=== PATIENT | male | born 1970 | race Caucasian/White ===

== ENCOUNTER → 2017-02-27 | Outpatient (CLI) | payer BC ==
[~2017-02-27] MED LIST: CITA20TA9 PO; VNTHFA/IN INH
--- NOTE | 2017-02-27 14:05 | DIAGNOSTIC IMAGING REPORT ---
CT SCAN OF THE ABDOMEN AND PELVIS WITHOUT IV CONTRAST CLINICAL HISTORY: Nephrolithiasis. Hematuria. COMPARISON STUDY: Abdominal CT dated 02/02/2016 and 04/09/2010. TECHNIQUE: CT scan of the abdomen and pelvis is performed from the lung bases to the proximal femora. Images are reviewed in the axial, sagittal, and coronal planes. IV contrast was not administered for this examination. A dose lowering technique was utilized adhering to the principles of ALARA. CT DOSE: 971.66 mGycm FINDINGS: Lung bases: The heart is normal in size and without pericardial effusion. The lung bases are clear. There is a tiny hiatal hernia. Liver: The unenhanced liver is mildly enlarged measuring 18.8 cm in length. The liver demonstrates diminished attenuation suggesting steatosis. Fatty sparing is seen adjacent to gallbladder fossa. There is no intrahepatic biliary ductal dilatation. There is a 2.5 cm low-attenuation focus seen in hepatic segment IV on image #72. Gallbladder: Unremarkable. Spleen: Normal in size and attenuation. Pancreas: The unenhanced pancreas is grossly unremarkable. Adrenal glands: Unremarkable. Kidneys: The unenhanced kidneys are normal in size and without hydronephrosis. There is a 5 mm nonobstructing calculus in the lower pole the right kidney. No left renal calculi are seen. There is no evidence of contour deforming renal mass lesion. Abdominal vasculature: The abdominal aorta is normal in course and caliber noting scattered foci of atherosclerotic calcification. Bowel: The small bowel and colon are normal in course and caliber. The appendix is well-visualized and normal. Peritoneum: There is no intraperitoneal free air or abdominal ascites. Lymphadenopathy: None. Pelvic viscera: The bladder, prostate, and seminal vesicles are normal as visualized. There are small bilateral fat-containing inguinal hernias. Skeletal structures: A large hemangioma is noted in the body of L3. No lytic or blastic lesions are seen. IMPRESSION: 1. There are no acute infectious or inflammatory findings in the abdomen or pelvis. 2. There is a 5 mm nonobstructing calculus in the lower pole of the right kidney. No left renal calculi are identified and there is no hydronephrosis. 3. The liver is enlarged and there is evidence of mild steatosis. 4. There is a 2.5 cm low-attenuation focus seen in hepatic segment IV. This was not clearly identified on prior examinations and is pathologically indeterminant, possibly representing a focus of geographic fatty infiltration. Correlation with a nonemergent contrast-enhanced MRI of the liver is recommended for further assessment and to a exclude underlying mass lesion. 5. Additional findings as above. Electronically signed by: Francisco Locke M.D. 02/27/2017 2:04 PM Dictated Date/Time: 02/27/2017 1:38 PM
== END | disposition home or self-care (01) ==
LOC: C.CTS 12:24
PROVIDERS: ATTEND Nurse Practitioner Family
DX: R30.0 Dysuria (principal); R31.9 Hematuria, unspecified; Z87.442 Personal history of urinary calculi

== ENCOUNTER → 2017-03-07 | Outpatient (CLI) | payer BC ==
[~2017-03-07] MED LIST changes: +GADOXETATE DISODIUM (NON-WT BASED PROCEDURE) IV PRN
--- NOTE | 2017-03-07 23:23 | DIAGNOSTIC IMAGING REPORT ---
MRI LIVER COMBO CLINICAL HISTORY: Liver lesion. COMPARISON STUDY: CT of the abdomen and pelvis February 27, 2017. TECHNIQUE: Utilizing a 1.5 Joann magnet and dedicated coil, multiplanar, multiecho imaging of the abdomen was performed pre and postcontrast administration. Post contrast imaging was performed utilizing dynamic enhancement. Injection of 10 cc of Eovist IV was uneventful. FINDINGS: The liver morphology is normal. Note is made of a 1.1 cm T2 hyperintense lesion within segment 7 of the liver and an additional 1 cm segment 5 T2 hyperintense lesion. These demonstrate nodular peripheral enhancement on postcontrast images and are consistent with hemangiomas. These are benign and were present on earlier CT of April 09, 2010. Fatty infiltration of the liver is noted on the out of phase sequence. There is more pronounced loss of signal within the medial segment of the left hepatic lobe which represents fatty infiltration and corresponds to the finding shown on prior CT of February 27, 2017. There are no suspicious hepatic lesions. There is no biliary or pancreatic ductal dilatation. The spleen, adrenal glands, kidneys and pancreas are unremarkable. There is no abdominal adenopathy or ascites. IMPRESSION: 1. No suspicious hepatic lesions. The 2.[address] of February 27, 2017 represents fatty infiltration. 2. Two small T2 hyperintense hepatic lesions consistent with hemangiomas. Electronically signed by: Rodney Mitchell M.D. 03/07/2017 11:22 PM Dictated Date/Time: 03/07/2017 8:52 PM
== END | disposition home or self-care (01) ==
LOC: C.MRI 19:00
PROVIDERS: ATTEND Nurse Practitioner Family
DX: K76.9 Liver disease, unspecified (principal)

== ENCOUNTER → 2017-03-27 | Outpatient (CLI) | payer OTHER ==
[~2017-03-27] MED LIST changes: +CHOL1TAB42 PO; +CIPR-255 PO; -GADOXETATE DISODIUM (NON-WT BASED PROCEDURE) IV PRN; +TRIA1SPR4 NAE
--- NOTE | 2017-03-27 11:51 | DIAGNOSTIC IMAGING REPORT ---
KUB CLINICAL HISTORY: Nephrolithiasis. FINDINGS: 2 AP supine abdominal radiographs are correlated with abdominal CT dated 02/27/2017. There is a nonobstructed abdominal bowel gas pattern noting moderate colonic fecal retention. There is no radiographic evidence of nephrolithiasis. Tiny phleboliths are observed in the pelvis. The bony structures appear intact. IMPRESSION: There is no radiographic evidence of nephrolithiasis. Electronically signed by: Francisco Locke M.D. 03/27/2017 11:49 AM Dictated Date/Time: 03/27/2017 11:48 AM
== END | disposition home or self-care (01) ==
LOC: C.RAD 10:19
PROVIDERS: ATTEND Urology
DX: N20.0 Calculus of kidney (principal)

== ENCOUNTER → 2017-05-05 | Outpatient (CLI) | payer OTHER ==
--- NOTE | 2017-05-05 14:56 | DIAGNOSTIC IMAGING REPORT ---
SOFT TISS HEAD/NECK-THYROID CLINICAL HISTORY: 46 years-old Male with SIALADENITIS. COMPARISON: Brain MRI 07/26/2011 TECHNIQUE: Multiple real time sonographic images of the bilateral parotid glands were obtained accessing ramirez scale appearance and color doppler flow. FINDINGS: The right parotid gland measures 6.7 x 4.5 x 2.1 cm. The left parotid gland measures 7.3 x 2.0 x 2.0 cm. There are bilateral ovoid circumscribed hypoechoic structures of the bilateral parotid glands suggesting lymph nodes, largest of which is within the right superficial parotid measuring 0.9 x 1.1 x 0.6 cm. The remainder of the structures are subcentimeter in size and likely reflect normal lymph nodes. IMPRESSION: 1. No suspicious mass lesions of the parotid identified. 2. Bilateral parotid lymph nodes are likely physiologic. Mildly enlarged lymph node of the superficial right parotid gland measures 1.1 cm in short axis. This could be further evaluated with a follow-up ultrasound to exclude progressive abnormality. The above report was generated using voice recognition software. It may contain grammatical, syntax or spelling errors. Electronically signed by: Alon Black M.D. 05/05/2017 2:55 PM Dictated Date/Time: 05/05/2017 2:49 PM
== END | disposition home or self-care (01) ==
LOC: C.ULTR 13:47
PROVIDERS: ATTEND Nurse Practitioner Family
DX: K11.20 Sialoadenitis, unspecified (principal); R22.0 Localized swelling, mass and lump, head

== ENCOUNTER 2017-05-10 13:57 | Emergency (ER) | payer OTHER ==
[~2017-05-10 13:57] MED LIST changes: -CIPR-255 PO
[2017-05-10 14:08] VITALS: TEMP 37
[2017-05-10] MEDS ORDERED: ACETAMINOPHEN 500 MG TAB PO STA (14:48)
[2017-05-10] MEDS ORDERED: KETOROLAC TROMETHAMINE 30 MG/ML VIAL IV STA (14:48)
[2017-05-10] MEDS ORDERED: OPTIRAY 320 IV PRN (15:00)
--- NOTE | 2017-05-10 15:17 | DIAGNOSTIC IMAGING REPORT ---
CHEST ONE VIEW PORTABLE CLINICAL HISTORY: 46 years-old Male presenting with ABDOMINAL PAIN/GI. TECHNIQUE: Portable upright AP view of the chest was obtained. COMPARISON: 08/11/2015. FINDINGS: Cardiomediastinal silhouette normal. Lungs and pleural spaces clear. Osseous structures normal. Upper abdomen normal. IMPRESSION: 1. No acute cardiopulmonary disease. Electronically signed by: Santos Irving M.D. 05/10/2017 3:16 PM Dictated Date/Time: 05/10/2017 3:15 PM
[2017-05-10 15:18] LABS: BASO % 0.4 %; BASO ABS # 0.03 K/uL (0-0.2); EOS % 0.7 %; EOS ABS # 0.05 K/uL (0-0.5); HEMOGLOBIN 15.3 g/dL (14.0-18.0); IG# 0.02 K/uL (0.00-0.02); LYMPH % 33.1 %; LYMPH ABS # 2.41 K/uL (1.2-3.4); MEAN CELL VOLUME 83.5 fL (80-100); MEAN CORPUSCULAR HEMOGLOBIN 29.7 pg (25-34); MEAN CORPUSCULAR HGB CONC 35.6 g/dl (32-36); MEAN PLATELET VOLUME 9.9 fL (7.4-10.4); MONO % 5.1 %; MONO ABS # 0.37 K/uL (0.11-0.59); NEUT % 60.4 %; NEUT ABS # 4.39 K/uL (1.4-6.5); PLATELET COUNT 212 K/uL (130-400); RED CELL DISTRIBUTION WIDTH CV 12.3 % (11.5-14.5); RED CELL DISTRIBUTION WIDTH SD 37.4 fL (36.4-46.3); WHITE BLOOD COUNT 7.27 K/uL (4.8-10.8)
[2017-05-10 15:38] LABS: ALBUMIN 4.5 gm/dl (3.4-5.0); ALT/SGPT 41 U/L (12-78); AST/SGOT 25 U/L (15-37); BLOOD UREA NITROGEN 9 mg/dl (7-18); CALCIUM 9.4 mg/dl (8.5-10.1); CARBON DIOXIDE 29 mmol/L (21-32); CREATININE 0.99 mg/dl (0.60-1.40); GLUCOSE 94 mg/dl (70-99); LIPASE 445 U/L (73-393); POTASSIUM 4.4 mmol/L (3.5-5.1); SODIUM 138 mmol/L (136-145)
[2017-05-10 15:40] LABS: ALKALINE PHOSPHATASE 58 U/L (45-117); TOTAL PROTEIN 8.2 gm/dl (6.4-8.2)
--- NOTE | 2017-05-10 16:19 | DIAGNOSTIC IMAGING REPORT ---
(TESTICULAR) SCROTUM-CONT CLINICAL HISTORY: 46 years-old Male presenting with b/l testicular TTP. TECHNIQUE: Real-time grayscale and color and spectral Doppler ultrasound imaging of the scrotum was performed. COMPARISON: None. FINDINGS: Right testis: Intratesticular multilocular cystic focus measuring 4 mm, which may be associated with the inferior aspect of the mediastinum testis, likely focal dilatation of the rete testis. No solid testicular mass. Few punctate calcifications also suggested. Testis measures 5.4 x 2.3 x 3.1 cm. Normal color Doppler flow and arterial and venous waveforms in the testicular parenchyma. 2 mm cyst in the epididymal head. Small hydrocele. No varicocele. Left testis: Normal echogenicity and echotexture apart from few calcifications. Testis measures 4.6 x 2.4 x 3.2 cm. Normal color Doppler flow and arterial and venous waveforms in the testicular parenchyma. Few small epididymal head calcifications. Small hydrocele. No varicocele. Symmetric perfusion of the testes. IMPRESSION: 1. No evidence of testicular torsion or epididymitis-orchitis. 2. Small bilateral hydroceles. Electronically signed by: Santos Irving M.D. 05/10/2017 4:18 PM Dictated Date/Time: 05/10/2017 4:14 PM
--- NOTE | 2017-05-10 17:09 | DIAGNOSTIC IMAGING REPORT ---
SOFT TISSUE NECK WITH CLINICAL HISTORY: 46 years-old Male presenting with please go above mandible, b/l parotid and submandib swelling/TTP. TECHNIQUE: Multidetector CT of the neck was performed after the administration of intravenous contrast. IV contrast: 115 mL of Optiray 320. A dose lowering technique was used consistent with the principles of ALARA (as low as reasonably achievable). COMPARISON: Ultrasound from 05/05/2017. CT DOSE (mGy.cm): The estimated cumulative dose is 455.95 mGy.cm. FINDINGS: Sawmill Supervisor topogram: Unremarkable. The parotid glands are normal in appearance with a few intraparotid benign-appearing lymph nodes evident. Submandibular and thyroid glands also normal in appearance. No lymphadenopathy. No displacement of the pericardial fat planes. Paranasal sinuses and mastoid air cells clear. Hypertrophy of the adenoidal lymphoid tissue, likely reactive. This narrows the nasopharynx. No suspicious effacement of the valleculae or piriform sinuses. Laryngeal ventricles noted. Aryepiglottic folds and epiglottis normal. True and false vocal folds normal. No effacement of the paraglottic or preepiglottic fat planes. Vasculature patent. Limited intracranial evaluation within normal limits. Cervical spine normal. Lung apices clear. IMPRESSION: Normal CT appearance of the parotid glands with few benign intraparotid lymph nodes evident. No convincing evidence of a parotid mass or other abnormality. Electronically signed by: Santos Irving M.D. 05/10/2017 5:07 PM Dictated Date/Time: 05/10/2017 5:04 PM
[2017-05-10] MEDS ORDERED: LEVOFLOXACIN 500 MG TAB PO STA (17:13)
[2017-05-10] MEDS ORDERED: CIPR-255 PO (17:19)
--- NOTE | 2017-05-10 17:19 | EMERGENCY ROOM VISIT NOTE ---
History Report prepared by Chanel: Carlito Sterling Under the Supervision of: Dr. Brennan Dexter M.D. First contact with patient: 14:13 Chief Complaint: THROAT PAIN/INJURY Stated Complaint: SWOLLEN GLANDS History of Present Illness The patient is a 46 year old white male with a past medical history of asthma and gout who presents to the ED with a cc of worsening neck pain and swelling beginning five days ago. Also complains of testicular pain and swelling as well. Neck swelling began on right side. No recent travel. Vaccinations are up to date. No exposure to individuals with similar symptoms. Positive dental tinging and occasional nausea. Negative vomiting, diarrhea, or urinary symptoms. On Celexa for anxiety. Source of History: patient Onset: Five days ago Position: neck (bilateral anterior) Quality: other (pain and swelling) Timing: worsening Associated Symptoms: + nausea (occasional), No vomiting, No diarrhea, No urinary symptoms Note: Positive dental tinging. Review of Systems See HPI for pertinent positives and negatives. A total of ten systems were reviewed and were otherwise negative. Past Medical & Surgical Medical Problems: (1) Asthma (2) Bronchitis (3) Diarrhea (4) Flank pain (5) Gout (6) Kidney stones (7) Mononucleosis (8) Pneumonia (9) Pulmonary emboli (10) Right kidney stone (11) Right ureteral stone (12) Right ureteral stone (13) Ureteral colic Surgical Problems: (1) History of lithotripsy Family History FHx: cholecystectomy Social History Smoking Status: Former Smoker Alcohol Use: occasionally Marital Status: Housing Status: lives with family Occupation Status: employed Current/Historical Medications Scheduled Albuterol Hfa (Ventolin Hfa), 2 PUFF INH UD Cholecalciferol (Vitamin D), 2 TAB PO QAM Ciprofloxacin Hcl (Cipro), 500 MG PO QD Citalopram Hydrobromide (Celexa), 20 MG PO QAM Triamcinolone Acetonide (Nasal (Nasacort Allergy 24Hr), 2 SPRAY CECI QAM Allergies Coded Allergies: NO KNOWN DRUG ALLERGIES (Verified Allergy, Unknown, ., 05/10/17) Uncoded Allergies: CATS (Allergy, Unknown, RUNNY NOSE, 04/14/17) Physical Exam Vital Signs Date Time Temp Pulse Resp B/P (MAP) Pulse Ox O2 Delivery O2 Flow Rate FiO2 05/10/17 15:28 62 18 106/74 96 Room Air 05/10/17 14:27 Room Air 05/10/17 14:08 37.0 80 16 132/83 98 Physical Exam GENERAL: Awake, alert, well-appearing, NAD HENT: Normocephalic, atraumatic. Mild swelling and TTP over the lateral cheek. No cellulitic changes. No submental or sublingual TTP. Oropharynx is clear. Submandibular swelling and TTP bilaterally. EYES: Normal conjunctiva. Sclera non-icteric. NECK: Supple. No nuchal rigidity. FROM. No stridor. RESPIRATORY: CTAB, no rhonchi, wheezing, crackles CARDIAC: RRR, no MRG ABDOMEN: Soft, NTND, BS+ : Circumcised. No penile pain. No scrotal pain. Bilateral testicular TTP. MSK: No chest wall TTP, no LE edema NEURO: GCS 15, CN 2-12 intact, moves all 4s on command SKIN: No rash or jaundice noted. Medical Decision & Procedures ER Provider Diagnostic Interpretation: Radiology results as stated below per my review and radiologist interpretation: (TESTICULAR) SCROTUM-CONT FINDINGS: Right testis: Intratesticular multilocular cystic focus measuring 4 mm, which may be associated with the inferior aspect of the mediastinum testis, likely focal dilatation of the rete testis. No solid testicular mass. Few punctate calcifications also suggested. Testis measures 5.4 x 2.3 x 3.1 cm. Normal color Doppler flow and arterial and venous waveforms in the testicular parenchyma. 2 mm cyst in the epididymal head. Small hydrocele. No varicocele. Left testis: Normal echogenicity and echotexture apart from few calcifications. Testis measures 4.6 x 2.4 x 3.2 cm. Normal color Doppler flow and arterial and venous waveforms in the testicular parenchyma. Few small epididymal head calcifications. Small hydrocele. No varicocele. Symmetric perfusion of the testes. IMPRESSION: 1. No evidence of testicular torsion or epididymitis-orchitis. 2. Small bilateral hydroceles. Electronically signed by: Santos Irving M.D. 05/10/2017 4:18 PM SOFT TISSUE NECK WITH FINDINGS: Senior Lead Developer topogram: Unremarkable. The parotid glands are normal in appearance with a few intraparotid benign-appearing lymph nodes evident. Submandibular and thyroid glands also normal in appearance. No lymphadenopathy. No displacement of the pericardial fat planes. Paranasal sinuses and mastoid air cells clear. Hypertrophy of the adenoidal lymphoid tissue, likely reactive. This narrows the nasopharynx. No suspicious effacement of the valleculae or piriform sinuses. Laryngeal ventricles noted. Aryepiglottic folds and epiglottis normal. True and false vocal folds normal. No effacement of the paraglottic or preepiglottic fat planes. Vasculature patent. Limited intracranial evaluation within normal limits. Cervical spine normal. Lung apices clear. IMPRESSION: Normal CT appearance of the parotid glands with few benign intraparotid lymph nodes evident. No convincing evidence of a parotid mass or other abnormality. Electronically signed by: Santos Irving M.D. 05/10/2017 5:07 PM CHEST ONE VIEW PORTABLE FINDINGS: Cardiomediastinal silhouette normal. Lungs and pleural spaces clear. Osseous structures normal. Upper abdomen normal. IMPRESSION: 1. No acute cardiopulmonary disease. Electronically signed by: Santos Irving M.D. 05/10/2017 3:16 PM Laboratory Results 05/10/17 15:04 Red Blood Count 5.15, Mean Corpuscular Volume 83.5, Mean Corpuscular Hemoglobin 29.7, Mean Corpuscular Hemoglobin Concent 35.6, Mean Platelet Volume 9.9, Neutrophils (%) (Auto) 60.4, Lymphocytes (%) (Auto) 33.1, Monocytes (%) (Auto) 5.1, Eosinophils (%) (Auto) 0.7, Basophils (%) (Auto) 0.4, Neutrophils # (Auto) 4.39, Lymphocytes # (Auto) 2.41, Monocytes # (Auto) 0.37, Eosinophils # (Auto) 0.05, Basophils # (Auto) 0.03 05/10/17 15:04 Test 05/10/17 15:00 05/10/17 15:04 Urine Color YELLOW Urine Appearance CLEAR (CLEAR) Urine pH 6.5 (4.5-7.5) Urine Specific [place] 1.005 (1.000-1.030) Urine Protein NEG (NEG) Urine Glucose (UA) NEG (NEG) Urine Ketones NEG (NEG) Urine Occult Blood NEG (NEG) Urine Nitrite NEG (NEG) Urine Bilirubin NEG (NEG) Urine Urobilinogen NEG (NEG) Urine Leukocyte Esterase NEG (NEG) White Blood Count 7.27 K/uL (4.8-10.8) Red Blood Count 5.15 M/uL (4.7-6.1) Hemoglobin 15.3 g/dL (14.0-18.0) Hematocrit 43.0 % (42-52) Mean Corpuscular Volume 83.5 fL (80-100) Mean Corpuscular Hemoglobin 29.7 pg (25-34) Mean Corpuscular Hemoglobin Concent 35.6 g/dl (32-36) Platelet Count 212 K/uL (130-400) Mean Platelet Volume 9.9 fL (7.4-10.4) Neutrophils (%) (Auto) 60.4 % Lymphocytes (%) (Auto) 33.1 % Monocytes (%) (Auto) 5.1 % Eosinophils (%) (Auto) 0.7 % Basophils (%) (Auto) 0.4 % Neutrophils # (Auto) 4.39 K/uL (1.4-6.5) Lymphocytes # (Auto) 2.41 K/uL (1.2-3.4) Monocytes # (Auto) 0.37 K/uL (0.11-0.59) Eosinophils # (Auto) 0.05 K/uL (0-0.5) Basophils # (Auto) 0.03 K/uL (0-0.2) RDW Standard Deviation 37.4 fL (36.4-46.3) RDW Coefficient of Variation 12.3 % (11.5-14.5) Immature Granulocyte % (Auto) 0.3 % Immature Granulocyte # (Auto) 0.02 K/uL (0.00-0.02) Anion Gap 5.0 mmol/L (3-11) Estimated GFR () 103.9 Estimated GFR (Non- 89.7 BUN/Creatinine Ratio 9.1 (10-20) Calcium Level 9.4 mg/dl (8.5-10.1) Total Bilirubin 0.6 mg/dl (0.2-1) Direct Bilirubin 0.1 mg/dl (0-0.2) Aspartate Amino Transf (AST/SGOT) 25 U/L (15-37) Alanine Aminotransferase (ALT/SGPT) 41 U/L (12-78) Alkaline Phosphatase 58 U/L (45-117) Total Protein 8.2 gm/dl (6.4-8.2) Albumin 4.5 gm/dl (3.4-5.0) Lipase 445 U/L (73-393) Lyme Disease IgG Antibody NEG (NEG) Lyme Disease IgM Antibody NEG (NEG) Laboratory results reviewed by me Medications Administered Medications (Trade) Dose Ordered Sig/[place] Route Start Time Stop Time Status Last Admin Dose Admin Ketorolac Tromethamine (Toradol Inj) 30 mg NOW STAT IV 05/10/17 14:48 05/10/17 14:51 DC 05/10/17 15:13 30 MG Acetaminophen (Tylenol Tab) 1,000 mg NOW STAT PO 05/10/17 14:48 05/10/17 14:51 DC 05/10/17 15:14 1,000 MG ED Course 1432: The patient was evaluated in room C9. A complete history and physical exam was performed. 1448: Ordered Tylenol Tab 1000 mg PO, Toradol Inj 30 mg IV. 1740: I reevaluated the patient. Discussed results and discharge instructions: he verbalized understanding and agreement. The patient is ready for discharge. Medical Decision The patient is a 46 year old white male with a past medical history of asthma and gout who presents to the ED with a cc of worsening neck pain and swelling beginning five days ago. EMR reviewed. [place] was negative. Mumps was cancelled, though patient was told results were negative. Differential diagnosis: Etiologies such as viral syndrome, otitis, pharyngitis, pneumonia, influenza, meningitis, urinary tract infection, sepsis, bacteremia, as well as others were entertained. Patient was seen and evaluated the bedside. Patient was referred after concern for some bilateral submandibular and facial swelling. Patient also did complain of some testicular pain and swelling. Patient was called and told he was tested for the months which was negative. Patient was also tested for mono which was also negative. Patient was seen and evaluated the bedside where he did have some noted discomfort at the parotid glands bilaterally and some submandibular swelling. Patient's posterior oropharynx is clear the patient had no stridor no sublingual and no submental swelling. Patient did have some testicular discomfort but no scrotal swelling and no penile tenderness or discharge. Patient denies any recent unprotected sexual encounters. Patient denies any painful defecation. Patient's blood work is fairly unremarkable. The patient did have mild elevation in his lipase but denies any epigastric discomfort. This may be related to viral syndrome. The patient's ultrasound did show bilateral epididymitis orchitis without any abscess or hydrocele. No evidence of any testicular torsion. Patient CT soft tissue of the neck and face did show likely reactive lymphadenitis but no other mass. No stones. Patient was given first dose of Cipro and was given ciprofloxacin as an outpatient for his epididymitis orchitis. Patient was deemed suitable for outpatient follow-up and treatment time. Patient was told to make a follow-up appointment with his PCP to ensure that he improves. Patient was given strict follow-up, discharge, and return precautions. All questions were answered. Patient was deemed suitable for outpatient follow-up at this time. Patient agreed with the plan of care and was safely discharged home. Medication Reconcilliation Current Medication List: was personally reviewed by me Blood Pressure Screening Patient's blood pressure: Normal blood pressure Blood pressure disposition: Did not require urgent referral Impression Primary Impression: Orchitis and epididymitis Additional Impressions: Lymphadenitis Elevated lipase Scribe Attestation The scribe's documentation has been prepared under my direction and personally reviewed by me in its entirety. I confirm that the note above accurately reflects all work, treatment, procedures, and medical decision making performed by me. Departure Information Dispostion Home / Self-Care Prescriptions Ciprofloxacin Hcl (CIPRO) 500 Mg Tab 500 MG PO QD for 9 Days, #9 TAB Prov: Brennan Dexter M.D. 05/10/17 Referrals No Doctor, Assigned (PCP) Patient Instructions Epididymitis Orchitis, Lymphadenopathy, My [facility] Additional Instructions Please return to the emergency department if you have worsening or recurrent symptoms not amenable to at-home treatment. Please call for a follow-up appointment with her primary care physician. Please take your medications as prescribed. If you have other concerns and/or complaints please feel free to also call your primary care physician's office or return the ED for further evaluation, management, and treatment. You may take 600 mg Ibuprofen every 6 hours as needed for pain with food for no more than 2 consecutive days. You may take tylenol 1000 mg every 6 hours as needed for pain. You may take motrin and tylenol separately or at the same time. Apply warm compresses to face. Consider wearing supportive underwear to help w/ testicular discomfort. Take your medications as prescribed. If taking an antibiotic consider taking a probiotic and/or eating yogurt, but at the least, please take with food as it can cause upset stomach. You have been examined and treated today on an emergency basis only. This is not a substitute for, or an effort to provide, complete comprehensive medical care. It is impossible to recognize and treat all injuries or illnesses in a single emergency department visit. It is therefore important that you follow up closely with [facility], your PCP, and/or your specialist(s). Call as soon as possible for an appointment. Thank you for your time and consideration. I look forward to speaking with you again soon. Please don't hesitate to call us if you have any questions. Problem Qualifiers
[2017-05-10 18:00] VITALS: BP 113/91; PULSE 63; O2SAT 96
== END 2017-05-10 18:00 | disposition home or self-care (01) ==
LOC: C.EDB 13:58 → C.EDC 18:00
DX: N45.2 Orchitis (principal); N45.1 Epididymitis; I88.9 Nonspecific lymphadenitis, unspecified; Z87.891 Personal history of nicotine dependence; J45.909 Unspecified asthma, uncomplicated